=== PATIENT | female | born 1960 ===

== ENCOUNTER 2017-09-08 15:07 | Outpatient (CLI) | payer OTHER ==
[~2017-09-08 15:07] MED LIST: SYNTHROID125 MCG; ULTRACET PO
== END 2017-09-08 17:00 | disposition home or self-care (01) ==
LOC: MRI 15:07
DX: M25.561 Pain in right knee (principal)
CPT/HCPCS: 73721

== ENCOUNTER 2017-09-08 15:12 | Outpatient (CLI) | payer OTHER | END 2017-09-08 17:00 | disposition home or self-care (01) | LOC: RAD 15:12 | DX: M25.561 Pain in right knee (principal); M25.562 Pain in left knee ==

== ENCOUNTER 2024-08-27 07:32 | Outpatient (CLI) | payer OTHER | END 2024-08-27 07:35 | disposition home or self-care (01) | LOC: TOM 07:32 | PROVIDERS: ATTEND Internal Medicine Gastroenterology | DX: Z12.11 Encounter for screening for malignant neoplasm of colon (principal) ==